=== PATIENT | female | born 1990 ===

== ENCOUNTER 2017-08-03 12:08 | Emergency (ER) | payer MEDICAID ==
[2017-08-03 12:09] VITALS: BMI 27.9
--- NOTE | 2017-08-03 12:52 | C.PDOC ---
History Of Present Illness 26 year old female presents to the ED for evaluation of new onset rash x 3 days. Patient notes initial onset b/l forearms, now spearing to upper arms chest and back. Patient reports itchiness. no other associated symptoms. Patient has been on current psychiatric medication regimen x 1 year. History obtained via medical staff coordinator. VIA TRANS NEW ONSET RASH X 3 DAYS. INITIAL ONSET B/L FOREARMS, NOW SPREADING TO UPPER ARMS CHEST AND BACK. +ITCH. NO OTHER ASSOC SX. ON CURRENT PSYCH MED REGIMIN X 1 YEAR. EXAM NAD HEENT NO ANGIOEDEMA; NO ORAL LESIONS SKNI RASH B/L ARMS, BACK, CHEST FLAT ERYTHEMA WELL CIRCUMSCRIBED BORDERS, PATCHY W CONFLUENCE. OCC EXCORIATIONS. BLANCHING. NO NODULES. NO EDEMA Time Seen by Provider: 08/03/17 12:30 Chief Complaint (Nursing): Abnormal Skin Integrity History Per: Patient History/Exam Limitations: no limitations Onset/Duration Of Symptoms: Days (3) Current Symptoms Are (Timing): Still Present Quality Of Symptoms: Itching Additional History Per: Patient Past Medical History Reviewed: Historical Data, Nursing Documentation, Vital Signs Vital Signs: Last Vital Signs Temp 98.1 F 08/03/17 13:19 Pulse 102 H 08/03/17 13:19 Resp 16 08/03/17 13:19 BP 112/77 08/03/17 13:19 Pulse Ox 97 08/03/17 15:34 - Medical History PMH: Anxiety, Bipolar Disorder, Depression, Schizophrenia Denies: Diabetes, Hepatitis, HIV, HTN, Chronic Kidney Disease, Seizures, Sexually Transmitted Disease Surgical History: Appendectomy - [facility] Procedures GROUP PSYCHOTHERAPY (03/08/16) INDIVID PSYCHOTHERAP NEC (12/13/13) INDIVIDUAL PSYCHOTHERAPY, SUPPORTIVE (03/08/16) LAPAROSCOP APPENDECTOMY (07/27/14) MEDICATION MANAGEMENT (03/08/16) OTHER GROUP THERAPY (12/13/13) PSYCHIAT DRUG THERAP NEC (11/28/13) Family History: States: Unknown Family Hx - Social History Hx Tobacco Use: No Hx Alcohol Use: No Hx Substance Use: No - Immunization History Hx Tetanus Toxoid Vaccination: No Hx Influenza Vaccination: No Hx Pneumococcal Vaccination: No Review Of Systems Skin: Positive for: Rash Physical Exam - Physical Exam Appears: Non-toxic, No Acute Distress Skin: Warm, Dry, Other (RASH B/L ARMS, BACK, CHEST FLAT ERYTHEMA WELL CIRCUMSCRIBED BORDERS, PATCHY W CONFLUENCE. OCC EXCORIATIONS. BLANCHING. NO NODULES. NO EDEMA) Head: Atraumatic, Normacephalic, No Other (angioedema ) Eye(s): bilateral: Normal Inspection Ear(s): Bilateral: Normal Nose: Normal, No Discharge Oral Mucosa: Moist, No Other (oral lesions ) Neck: Supple Chest: Symmetrical, No Deformity, No Tenderness Cardiovascular: Rhythm Regular Respiratory: Normal Breath Sounds Extremity: Normal ROM Neurological/Psych: Oriented x3, Normal Speech, Normal Cognition ED Course And Treatment ECG: Interpreted By Me ECG Rhythm: Sinus Tachycardia Rate From EC O2 Sat by Pulse Oximetry: 97 (on RA) Pulse Ox Interpretation: Normal Progress Note: EKG ordered and reviewed. 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 - Scribe Statement The provider has reviewed the documentation as recorded by the Scribe (Yany Rocha) Provider Attestation: All medical record entries made by the Scribe were at my direction and personally dictated by me. I have reviewed the chart and agree that the record accurately reflects my personal performance of the history, physical exam, medical decision making, and the department course for this patient. I have also personally directed, reviewed, and agree with the discharge instructions and disposition.
[2017-08-03 13:20] VITALS: BP 112/77; PULSE 102; RESP 16; TEMP 98.1
[2017-08-03 15:29] VITALS: O2SAT 97
--- NOTE | 2017-08-03 20:46 | CARD ---
APPROVED REPORT EKG Measurement Heart [id number] <Conclusion> Sinus tachycardia Low voltage QRS Borderline ECG
== END 2017-08-03 13:20 | disposition home or self-care (01) ==
LOC: C.ER 12:08
DX: L30.9 Dermatitis, unspecified (principal)